=== PATIENT | male | born 1950 | race Caucasian/White ===

== ENCOUNTER → 2018-09-28 | Outpatient (CLI) | payer MEDICARE, OTHER ==
[~2018-09-28] MED LIST: CENTRUM SILVER1 EAC3 PO; CO Q1060 MG PO; OMEGA; VITAMIN C PO; Z.0.MULTIVITAMINS1 E; [UNRECOGNIZED DRUG - OTHER]; [UNRECOGNIZED DRUG - OTHER]
--- NOTE | 2018-09-28 15:30 | Diagnostic Imaging Report ---
EXAM: Right hip radiographs-2 views, left hip radiographs-2 views, AP radiographs of the pelvis-2 views INDICATION: Bilateral pelvic and hip pain. COMPARISON: None FINDINGS: There are mild bilateral hip degenerative changes without evidence of acute fracture or malalignment. AP radiograph of the pelvis demonstrates borderline mild widening of the pubic symphysis, measuring up to 1.5 cm. No evidence of acute fracture. Degenerative changes are noted in the lower lumbar spine. IMPRESSION: Mild bilateral hip osteoarthritis. Borderline mild widening of the pubic symphysis, which may represent sequela of prior trauma in the absence of acute injury. Signed by: Dr. Magali Shrestha MD on 09/28/2018 3:27 PM
== END ==
LOC: RAD 13:59
DX: M25.552 Pain in left hip (principal); M25.551 Pain in right hip; R10.2 Pelvic and perineal pain
CPT/HCPCS: 73522

== ENCOUNTER → 2018-10-16 | Outpatient (CLI) | payer MEDICARE, OTHER ==
--- NOTE | 2018-10-16 11:21 | Diagnostic Imaging Report ---
MRI of the right hip without contrast. History: Hip pain. Decreased range of motion. Pain not responding to conservative management. Pain worse with climbing. Technique: Multiplanar multisequence MRI of the hip without contrast Findings: There is no acute fracture, subluxation or avascular necrosis. Scattered degenerative changes are seen about the visualized lower lumbar spine and pelvis. Degenerative changes are seen at the pubic symphysis with slight widening of the pubic symphysis which is partially fluid-filled. There is mild adjacent bone marrow edema. The findings are best seen on coronal series 3 image 19 through 23 large [id number]. The prostate gland is enlarged and heterogeneous in appearance The urinary bladder and remainder of the visualized pelvic structures are otherwise grossly unremarkable. Mild degenerative changes are seen about the hip joint with thinning of the articular cartilage at the superior lateral acetabulum and adjacent femoral head. There is a small degenerative cyst in the superior lateral acetabulum best seen on coronal series 8 image 13. There is degeneration and fraying of the labrum. There is a physiologic amount of fluid in the hip joint. The remainder of the visualized ligaments and tendons about the hip are intact. There is mild soft tissue swelling about the greater trochanter which could be due to mild trochanteric bursitis. The visualized neurovascular bundles are intact. There is insertional hamstring tendinosis with partial tearing best seen on coronal series 3 image 9 and 10. The visualized muscles are otherwise normal in size, signal intensity and morphology. Impression: Insertional hamstring tendinosis with partial tearing best seen on coronal series 3 image 9 and 10. The visualized muscles are otherwise normal in size, signal intensity and morphology. Degenerative changes are seen at the pubic symphysis with slight widening of the pubic symphysis which is partially fluid-filled. There is mild adjacent bone marrow edema The prostate gland is enlarged and heterogeneous in appearance Signed by: Dr. Wade Tom M.D. on 10/16/2018 11:18 AM
--- NOTE | 2018-10-16 11:24 | Diagnostic Imaging Report ---
MRI of the left hip without contrast. History: Hip pain. Decreased range of motion. Pain not responding to conservative management. Pain worse with climbing. Technique: Multiplanar multisequence MRI of the hip without contrast Findings: There is no acute fracture, subluxation or avascular necrosis. Scattered degenerative changes are seen about the visualized lower lumbar spine and pelvis. Degenerative changes are seen at the pubic symphysis with slight widening of the pubic symphysis which is partially fluid-filled. There is mild adjacent bone marrow edema. The findings are best seen on coronal series 3 image 19 through 23 large [id number]. The prostate gland is enlarged and heterogeneous in appearance The urinary bladder and remainder of the visualized pelvic structures are otherwise grossly unremarkable. Mild degenerative changes are seen about the hip joint with thinning of the articular cartilage at the superior lateral acetabulum and adjacent femoral head. There is degeneration and fraying of the labrum. There is a physiologic amount of fluid in the hip joint. The remainder of the visualized ligaments and tendons about the hip are intact. There is mild soft tissue swelling about the greater trochanter which could be due to mild trochanteric bursitis. The visualized neurovascular bundles are intact. There is insertional hamstring tendinosis with partial tearing best seen on coronal series 3 image 7 and 8. The visualized muscles are otherwise normal in size, signal intensity and morphology. Impression: Insertional hamstring tendinosis with partial tearing best seen on coronal series 3 image 7 and 8. The visualized muscles are otherwise normal in size, signal intensity and morphology. Degenerative changes are seen at the pubic symphysis with slight widening of the pubic symphysis which is partially fluid-filled. There is mild adjacent bone marrow edema The prostate gland is enlarged and heterogeneous in appearance Signed by: Dr. Wade Tom M.D. on 10/16/2018 11:21 AM
== END ==
LOC: MRI 07:53
DX: M25.552 Pain in left hip (principal); M25.551 Pain in right hip

== ENCOUNTER → 2019-03-15 | Outpatient (CLI) | payer MEDICARE, OTHER ==
--- NOTE | 2019-03-15 14:57 | Diagnostic Imaging Report ---
Right shoulder, 2 views. History: Chronic right shoulder pain. Findings: The soft tissues are normal. Bone mineralization is normal. There is no evidence of fracture, AC separation, or dislocation. There are no lytic or sclerotic lesions. Degenerative changes are present in the AC and glenohumeral joints. IMPRESSION: Right shoulder DJD. Signed by: Kayode Swann on 03/15/2019 2:54 PM
== END ==
LOC: RAD 13:04
DX: M25.511 Pain in right shoulder (principal)

== ENCOUNTER → 2020-02-13 | Outpatient (CLI) | payer MEDICARE, OTHER ==
[~2020-02-13] MED LIST changes: +MAGNESIUM OXID400 MG PO; +MILK THISTLE140 M1 PO; +VITAMIN B-121000 MCG PO; +VITAMIN E400 UNIT PO
--- NOTE | 2020-02-13 10:48 | Diagnostic Imaging Report ---
EXAMINATION: CHEST 2 VIEWS INDICATION: Cough COMPARISON: None FINDINGS: LINES/TUBES:None LUNGS:The lungs are well-inflated. Hazy peripheral right midlung opacity. PLEURA:No pleural effusion or pneumothorax. MEDIASTINUM:The cardiomediastinal silhouette appears normal in size and shape. BONES/SOFT TISSUES:No acute osseous injury. ABDOMEN:No free air under the diaphragm. IMPRESSION: Hazy peripheral right mid lung opacity may represent pneumonia in the proper clinical setting. Signed by: Juan F Elizondo MD on 02/13/2020 10:44 AM
== END ==
LOC: RAD 09:39
DX: R05 Cough (principal)
CPT/HCPCS: 71046

== ENCOUNTER 2020-02-15 12:29 | Emergency (ER) | payer MEDICARE, OTHER ==
[~2020-02-15] VITALS: Ht 185.4 cm; Wt 106.6 kg
--- NOTE | 2020-02-15 13:10 | Emergency Department Note ---
History of Present Illnes History of Present Illness Chief Complaint: COVID PUI History of Present Illness This is a 69 year old male arrived to the ED requesting a covid swab, pt stated he had a chest x-ray done this morning by his PCP which was concerning for pneumonia. Patient admits to generalized malaise and cough. Historian: Patient Arrival Mode: Car Duration (how long): day(s) Chronicity: new Context: Reports recent illness Relieving factors: none Exacerbating factors: none Past Medical/Family History Physician Review I have reviewed the patient's past medical and family history. Any updates have been documented here. Past Medical History Recent Fever: No Clinical Suspicion of Infectio: Yes New/Unexplained Change in Ment: No Past Medical History: Hypertension, Diabetes Other Surgery: vericocele Social History Smoking Cessation: Never Smoker Alcohol Use: Social Any Illegal Drug Use: No TB Exposure/Symptoms: No Physically hurt or threatened: No Family History Family history of heart diseas: Yes Review of Systems Review of Systems Constitutional: Reports as per HPI EENTM: Reports no symptoms Cardiovascular: Reports no symptoms Respiratory: Reports as per HPI Gastrointestinal: Reports no symptoms Genitourinary: Reports no symptoms Musculoskeletal: Reports no symptoms Integumentary: Reports no symptoms Neurological: Reports no symptoms Psychological: Reports no symptoms Endocrine: Reports no symptoms Hematological/Lymphatic: Reports no symptoms Physical Exam Related Data Allergies: Coded Allergies: No Known Allergies (Unverified , 01/11/12) Triage Vital Signs Vital Signs Date Time Temp Pulse Resp B/P (MAP) Pulse Ox O2 Delivery O2 Flow Rate FiO2 02/15/20 12:34 98.9 108 18 153/86 98 Room Air Vital signs reviewed: Yes Physical Exam CONSTITUTIONAL Constitutional: Present well-developed, Present well-nourished HENT HENT: Present normocephalic, Present atraumatic, Present oropharynx clear/moist, Present nose normal HENT L/R: Present left ext ear normal, Present right ext ear normal EYES Eyes: Reports PERRL, Reports conjunctivae normal NECK Neck: Present ROM normal PULMONARY Pulmonary: Present effort normal, Present breath sounds normal CARDIOVASCULAR Cardiovascular: Present regular rhythm, Present heart sounds normal, Present capillary refill normal, Present normal rate GASTROINTESTINAL Abdominal: Present soft, Present nontender, Present bowel sounds normal GENITOURINARY Genitourinary: Present exam deferred SKIN Skin: Present warm, Present dry MUSCULOSKELETAL Musculoskeletal: Present ROM normal NEUROLOGICAL Neurological: Present alert, Present oriented x 3, Present no gross motor or sensory deficits PSYCHOLOGICAL Psychological: Present mood/affect normal, Present judgement normal Assessment & Plan Medical Decision Making MDM 69-year-old well-appearing male arrives to the ED with complaints of cough fever loss of taste and smell. Patient is clinically presenting with signs and symptoms consistent with Covid 19. Patient informed he is positive until proven otherwise. Patient's oxygen saturation remained 99% even on exertion, no evidence of tachypnea or dyspnea noted in the ED. Spoke present length about the importance of sleeping on his stomach and rotating from side to side. Z-Andrei given, signs and symptoms for return discussed. In the light of the Covid pandemic, disaster medicine care was given- patient understands why he was not tested for Covid 19 in the ED, no indications for a chest x-ray at this time given normal oxygen saturation and respiratory status. Pt understands he is at high risk of morbidity and mortality given his age and co-morbidiites. Pt understands he is welcome to return to the ED at anytime for worsening symptoms. Assessment & Plan Final Impression: (1) COVID-19 Depart Disposition: HOME, SELF-CARE Last Vital Signs Date Time Temp Pulse Resp B/P (MAP) Pulse Ox O2 Delivery O2 Flow Rate FiO2 02/15/20 12:34 98.9 108 18 153/86 98 Room Air Home Meds Reported Medications Magnesium Oxide (MAGNESIUM OXIDE) 400 Mg Tablet, PO DAILY, TAB 07/23/19 Cyanocobalamin (VITAMIN B-12) 1,000 Mcg Tab, PO DAILY, #30 TAB 07/23/19 Vitamin E Acetate (VITAMIN E) 400 Unit Capsule, 1000 UNITS PO DAILY, #30 CAP 07/23/19 Milk Thistle Seed Extract (MILK THISTLE) 140 Mg Capsule, PO DAILY 07/23/19 Mu-Vits-Min Th/Lycopene/Lutein (CENTRUM SILVER TABLET) 1 Each Tablet, PO DAILY 05/26/15 [Vitamin C] No Conflict Check, PO DAILY 05/26/15 [Vitamin D Qd] No Conflict Check 01/11/12 [Vitamin B Qd] No Conflict Check 01/11/12 JAYCEE ASKEW, Feb 15, 2020 13:10
== END 2020-02-15 12:48 | disposition home or self-care (01) ==
LOC: ER 12:45
DX: U07.1 COVID-19 (principal); I10 Essential (primary) hypertension; E11.9 Type 2 diabetes mellitus without complications
CPT/HCPCS: 99282

== ENCOUNTER → 2020-03-11 | Outpatient (CLI) | payer MEDICARE, OTHER ==
--- NOTE | 2020-03-11 09:48 | Diagnostic Imaging Report ---
EXAM: CT Chest WITHOUT intravenous contrast 03/11/2020 7:31 AM INDICATION: Chronic cough COMPARISON: Chest radiograph 02/13/2020 TECHNIQUE: Chest was scanned utilizing a multidetector helical scanner from the lung apex through the level of the adrenal glands without administration of IV contrast. Coronal and sagittal reformations were obtained. Routine protocol was performed. IV CONTRAST: None RADIATION DOSE: Total DLP: 521 mGy*cm. Dose modulation, iterative reconstruction, and/or weight based adjustment of the mA/kV was utilized to reduce the radiation dose to as low as reasonably achievable. COMPLICATIONS: None FINDINGS: LINES/ TUBES: None. LUNGS AND AIRWAYS: The central airways are patent. Scattered geographic ground glass opacities involve the peripheral right upper lobe and right lower lobe. These correspond with the hazy opacity seen on chest radiograph of 02/13/2020 scattered subcentimeter calcified granulomas. Airways are normal. PLEURA: The pleural spaces are clear. HEART AND MEDIASTINUM: Partially visualized thyroid gland appears unremarkable. No supraclavicular, axillary, mediastinal, or hilar lymphadenopathy. Scattered nonenlarged calcified mediastinal and right hilar lymph nodes. No pericardial effusion. The heart is not enlarged. Atherosclerotic calcifications involve the coronary arteries and thoracic aortic arch. UPPER ABDOMEN: Punctate calcified granulomas in the liver and spleen. No acute findings in the upper abdomen. BONES: No acute osseous injury. No suspicious lytic or blastic lesions. Mild degenerative changes of the visualized spine. SOFT TISSUES: Unremarkable. IMPRESSION: Peripheral right upper and right lower lobe groundglass opacities correspond with the hazy opacity seen on chest radiograph of 02/13/2020 and likely correspond with sequela of viral pneumonitis given history of prior viral pneumonia. Signed by: Juan F Elizondo MD on 03/11/2020 9:44 AM
== END ==
LOC: CT 07:09
PROVIDERS: ATTEND Family Medicine
DX: R05 Cough (principal)
CPT/HCPCS: 71250